=== PATIENT | male | born 1960 | race Asian ===

== ENCOUNTER 2017-05-17 22:20 | Inpatient (IN) | payer BC, OTHER ==
[2017-05-17] MEDS ORDERED: NS IV 1000 ML 1,000 ML IV ONE (23:36)
[2017-05-17] MEDS ORDERED: ONDANSETRON 4 MG/2 ML (SDV) Z0FRAN IVP ONE (23:45)
[2017-05-18] MEDS ORDERED: metroNIDAZOLE 500MG/100ML IVPB 100 ML IV ONE (02:45)
[2017-05-18] MEDS ORDERED: CIPROFLOXACIN IV 400MG/200ML 200 ML IV ONE (03:16)
[2017-05-18] MEDS ORDERED: D5 NS 1000 ML IV SOLUTION 1,000 ML IV ONE (03:16)
[2017-05-18] MEDS: D5 NS 1000 ML IV SOLUTION 1,000 ML IV SCH ×3 (03:29→14:04)
[2017-05-18] MEDS: CIPROFLOXACIN 400 MG/D5W 200 ML (PRE-MIX) IV SCH ×2 (03:29→15:23)
[2017-05-18] MEDS ORDERED: ONDANSETRON 4 MG/2 ML (SDV) Z0FRAN IV PRN (03:30)
[2017-05-18] MEDS: PANTOPRAZOLE 40 MG/10 ML (PROTONIX) VIAL IV SCH ×2 (03:31→15:23)
[2017-05-18] MEDS ORDERED: NS 100 ML (IVPB) BAG IV ONE (03:45)
[2017-05-18] MEDS ORDERED: IOHEXOL 350 MG/ML 100 ML (OMNIPAQUE 350) VIAL IV ONE (03:45)
[2017-05-18] MEDS: fentaNYL INJECTION 100 MCG/2 ML AMP IV PRN ×4 (04:08→17:12)
[2017-05-18] MEDS: metroNIDAZOLE 500 MG/100 ML IVPB (PRE-MIX) IV SCH ×3 (08:54→20:03)
[2017-05-18] MEDS ORDERED: OMG1KC PO (12:06)
[2017-05-18] MEDS ORDERED: MULT1TAB69 PO (12:06)
[2017-05-18] MEDS ORDERED: VITA400C58 PO (12:06)
[2017-05-18] MEDS ORDERED: CALC-654 PO (12:06)
[2017-05-18] MEDS ORDERED: ASPI-983 PO (12:06)
[2017-05-18] MEDS: inSUlin (REGULAR) HUMAN 1 UNIT/0.01 ML (CHARGE PER UNIT) SC SCH ×2 (16:00→21:25)
[2017-05-18] MEDS: LACTATED RINGERS 1,000 ML IV SCH (16:15)
[2017-05-19] MEDS: fentaNYL INJECTION 100 MCG/2 ML AMP IV PRN ×2 (00:26→03:29)
[2017-05-19] MEDS: metroNIDAZOLE 500 MG/100 ML IVPB (PRE-MIX) IV SCH ×4 (01:36→20:27)
[2017-05-19] MEDS: PANTOPRAZOLE 40 MG/10 ML (PROTONIX) VIAL IV SCH ×2 (03:17→15:38)
[2017-05-19] MEDS: CIPROFLOXACIN 400 MG/D5W 200 ML (PRE-MIX) IV SCH ×2 (03:17→15:38)
[2017-05-19] MEDS: LACTATED RINGERS 1,000 ML IV SCH ×3 (05:26→20:27)
[2017-05-19] MEDS: inSUlin (REGULAR) HUMAN 1 UNIT/0.01 ML (CHARGE PER UNIT) SC SCH ×4 (05:26→21:22)
[2017-05-20] MEDS: metroNIDAZOLE 500 MG/100 ML IVPB (PRE-MIX) IV SCH ×3 (01:44→14:38)
[2017-05-20] MEDS: PANTOPRAZOLE 40 MG/10 ML (PROTONIX) VIAL IV SCH ×2 (03:18→15:43)
[2017-05-20] MEDS: CIPROFLOXACIN 400 MG/D5W 200 ML (PRE-MIX) IV SCH ×2 (03:18→15:43)
[2017-05-20] MEDS: inSUlin (REGULAR) HUMAN 1 UNIT/0.01 ML (CHARGE PER UNIT) SC SCH ×2 (05:31→11:30)
[2017-05-20] MEDS: LACTATED RINGERS 1,000 ML IV SCH (08:15)
[2017-05-20] MEDS ORDERED: lisINopril 5 MG (PRINIVIL) TABLET PO SCH (09:00)
== END 2017-05-20 16:45 | disposition home or self-care (01) | DRG 392 ==
DX: R19.7 Diarrhea, unspecified (principal); I10 Essential (primary) hypertension; E11.9 Type 2 diabetes mellitus without complications; Z81.2 Family history of tobacco abuse and dependence

== ENCOUNTER 2018-01-07 18:26 | Emergency (ER) | payer BC ==
[~2018-01-07] VITALS: Ht 165.1 cm; Wt 79.4 kg
[~2018-01-07 18:26] MED LIST: ASPI-983 PO; CALC-654 PO; MULT1TAB69 PO; OMG1KC PO; VITA400C58 PO
[2018-01-07] MEDS ORDERED: NS IV 1000 ML 1,000 ML IV ONE (19:22)
[2018-01-07] MEDS ORDERED: ONDANSETRON 4 MG/2 ML (SDV) Z0FRAN IVP ONE (19:30)
[2018-01-07] MEDS ORDERED: KETOROLAC 30 MG/ML VIAL IVP ONE (19:30)
[2018-01-07 19:43] LABS: CLARITY,URINE BLOODY; COLOR,URINE RED; GLUCOSE, URINE (UA) NEGATIVE (NEGATIVE); KETONES,URINE 1+ (NEGATIVE); LEUKOCYTE ESTERASE ,URINE 2+ (NEGATIVE); NITRITE,URINE POSITIVE (NEGATIVE); PH,URINE 6.5 (5-9); PROTEIN,URINE 4+ (NEGATIVE); UROBILINOGEN,URINE 1 MG/DL (NORMAL)
[2018-01-07 19:54] LABS: BASOPHILS % (AUTO) 0 % (0-10); EOSINOPHILS # (AUTO) 0.1 10^3/uL (0.0-0.3); EOSINOPHILS % (AUTO) 0 % (0-10); HEMATOCRIT 44 % (40-54); HEMOGLOBIN 15.1 G/DL (13.3-17.7); LYMPHOCYTES # (AUTO) 1.5 X 10^3 (1.0-4.0); LYMPHOCYTES % (AUTO) 12 % (12-44); MEAN CORPUSCULAR HEMOGLOBIN 31 PG (25-34); MEAN CORPUSCULAR HGB CONC 34 G/DL (32-36); MEAN CORPUSCULAR VOLUME 91 FL (80-99); MEAN PLATELET VOLUME 11.9 FL (7.4-10.4); MONOCYTES # (AUTO) 0.6 X 10^3 (0.0-1.0); MONOCYTES % (AUTO) 5 % (0-12); NEUTROPHILS % (AUTO) 82 % (42-75); PLATELET COUNT 240 10^3/uL (130-400); RED BLOOD COUNT 4.88 10^6/uL (4.35-5.85); RED CELL DISTRIBUTION WIDTH 12.8 % (10.0-14.5); WHITE BLOOD COUNT 12.1 10^3/uL (4.3-11.0)
--- NOTE | 2018-01-07 19:57 | Diagnostic Imaging Report ---
PROCEDURE: CT urinary tract, rule out kidney stone. TECHNIQUE: Multiple contiguous axial images were obtained through the abdomen and pelvis without the use of intravenous contrast. INDICATION: Abdominal pain. COMPARISON: Study of 05/18/2017. FINDINGS: Unenhanced images of the liver and spleen reveal no focal abnormality. There is a small hiatal hernia. No gallbladder or pancreatic abnormality is identified. Gallbladder and kidneys reveal no focal lesion on the noncontrast study. There is slight left hydronephrosis and mild left hydroureter to the level of an approximately 0.5 cm distal left ureteric stone. No free fluid is seen in the abdomen or pelvis. There is no evidence of localized inflammation. There is a small umbilical herniation containing fat. Mild aortoiliac atherosclerotic calcification is present. There is no evidence of bladder calculus. There is mild diffuse thoracic and lumbar spondylosis. IMPRESSION: 1. At least partially obstructing 0.5 cm calcification in the distal left ureter. 2. Incidental note is made of punctate calcification in the inferior left prostate which was present on the previous study as well. Dictated by: Dictated on workstation # [id number]
[2018-01-07 20:02] LABS: BACTERIA,URINE MODERATE /HPF; BILIRUBIN,URINE 1+ (NEGATIVE); RBC,URINE TNTC /HPF
[2018-01-07 20:07] LABS: ALBUMIN 4.5 GM/DL (3.2-4.5); BILIRUBIN,TOTAL 0.5 MG/DL (0.1-1.0); CALCIUM 9.9 MG/DL (8.5-10.1); CREATININE SERUM 1.25 MG/DL (0.60-1.30); POTASSIUM 4.4 MMOL/L (3.6-5.0); TOTAL PROTEIN 8.7 GM/DL (6.4-8.2)
[2018-01-07] MEDS ORDERED: cefTRIAXone INJECTION 1,000 MG in NS (IVPB) 50 ML IV ONE (20:15)
--- NOTE | 2018-01-07 20:15 | ED Abdominal Pain ---
General Chief Complaint: -Male Stated Complaint: KIDNEY STONES Nursing Triage Note: PT C/O PASSING KIDNEY STONES AND BLOOD IN URINE. Sepsis Screen: No Definite Risk Source of Information: Patient, Family Exam Limitations: No Limitations History of Present Illness Date Seen by Provider: Jan 08, 2018 Time Seen by Provider: 18:45 Initial Comments This 57-year-old gentleman presents to the emergency room with left flank pain that started around 06:00. Pain was waxing and waning. Improved by 09:00. Pain then returned around 16:00. He has had nausea, vomiting, and associated sweats. Pain is reported as 3/10 at this time. He has had notable hematuria. He is afebrile. Allergies and Home Medications Allergies Coded Allergies: No Known Drug Allergies (Unverified , 05/17/17) Home Medications Aspirin 81 Mg Tablet.dr, 81 MG PO DAILY, (Reported) Calcium Carbonate/Vitamin D3 1 Each Tablet, 1 TAB PO DAILY, (Reported) Ciprofloxacin HCl 500 Mg Tablet, 500 MG PO BID, #20 Prescribed by: KIKI MAKI on 01/07/182017 Multivitamin 1 Each Tablet, 1 TAB PO DAILY, (Reported) [place] 3 Polyunsat Fatty Acids 1,000 Mg Cap, 1,000 MG PO DAILY, (Reported) Ondansetron 4 Mg Tab.rapdis, 4 MG SL Q4H PRN for NAUSEA/VOMITING-1ST LINE, #10 Ref 1 Prescribed by: KIKI MAKI on 01/07/182017 Oxycodone HCl/Acetaminophen 1 Each Tablet, 1-2 EACH PO Q4H PRN for PAIN- MODERATE TO SEVERE, #20 Prescribed by: KIKI MAKI on 01/07/18 2018 Tamsulosin HCl 0.4 Mg Cap, 0.4 MG PO DAILY, #30 Prescribed by: KIKI MAKI on 01/07/18 2018 Vitamin E Mixed 400 Unit Capsule, 400 UNIT PO DAILY, (Reported) Review of Systems Constitutional: see HPI EENTM: No Symptoms Reported Respiratory: No Symptoms Reported Cardiovascular: No Symptoms Reported Gastrointestinal: See HPI Genitourinary: See HPI Musculoskeletal: no symptoms reported Skin: no symptoms reported Psychiatric/Neurological: No Symptoms Reported Endocrine: No Symptoms Reported Past Mwbeluy-Rrwgci-Dxyymv Hx Patient Social History Former Smoker, Quit: May 18, 1995 Recent Foreign Travel: No Contact w/Someone Who Travel: No Recent Infectious Disease Expo: No Recent Hopitalizations: No Immunizations Up To Date PED Vaccines UTD: No Seasonal Allergies Seasonal Allergies: Yes Surgeries History of Surgeries: Yes Surgeries: Appendectomy Respiratory History of Respiratory Disorde: No Cardiovascular History of Cardiac Disorders: No Neurological History of Neurological Disord: No Genitourinary History of Genitourinary Disor: No Gastrointestinal History of Gastrointestinal Di: No Musculoskeletal History of Musculoskeletal Dis: No Endocrine History of Endocrine Disorders: Yes Endocrine Disorders: Diabetes, Non-Insulin dep HEENT History of HEENT Disorders: No Cancer History of Cancer: No Psychosocial History of Psychiatric Problem: No Integumentary History of Skin or Integumenta: No Blood Transfusions History of Blood Disorders: No Family Medical History Significant Family History: Asthma, COPD Family Medial History: Asthma 19 MOTHER FH: pancreatic cancer G8 SISTER Physical Exam Vital Signs VS - Last 72 Hours, by Label 01/07/18 01/07/18 19:18 21:10 Temp 98.7 98.7 Pulse 72 88 Resp 18 20 B/P (MAP) 158/83 (108) Pulse Ox 95 96 O2 Delivery Room Air Room Air Capillary Refill : Less Than 3 Seconds General Appearance: WD/WN, mild distress HEENT: PERRL/EOMI, normal ENT inspection Neck: normal inspection Respiratory: lungs clear, normal breath sounds, no respiratory distress, no accessory muscle use Cardiovascular: regular rate, rhythm, no edema, no murmur Gastrointestinal: normal bowel sounds, soft, tenderness (left flank) Extremities: normal inspection, no pedal edema 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, no motor/sensory deficits, alert, normal mood/affect, oriented x 3 Skin: normal color, warm/dry Progress/Results/Core Measures Results/Orders Lab Results Laboratory Tests Test 01/07/18 19:25 Range/Units White Blood Count 12.1 H 4.3-11.0 10^3/uL Red Blood Count 4.88 4.35-5.85 10^6/uL Hemoglobin 15.1 13.3-17.7 G/DL Hematocrit 44 40-54 % Mean Corpuscular Volume 91 80-99 FL Mean Corpuscular Hemoglobin 31 25-34 PG Mean Corpuscular Hemoglobin Concent 34 32-36 G/DL Red Cell Distribution Width 12.8 10.0-14.5 % Platelet Count 240 130-400 10^3/uL Mean Platelet Volume 11.9 H 7.4-10.4 FL Neutrophils (%) (Auto) 82 H 42-75 % Lymphocytes (%) (Auto) 12 12-44 % Monocytes (%) (Auto) 5 0-12 % Eosinophils (%) (Auto) 0 0-10 % Basophils (%) (Auto) 0 0-10 % Neutrophils # (Auto) 10.0 H 1.8-7.8 X 10^3 Lymphocytes # (Auto) 1.5 1.0-4.0 X 10^3 Monocytes # (Auto) 0.6 0.0-1.0 X 10^3 Eosinophils # (Auto) 0.1 0.0-0.3 10^3/uL Basophils # (Auto) 0.0 0.0-0.1 10^3/uL Urine Color RED H Urine Clarity BLOODY H Urine pH 6.5 5-9 Urine Specific [place] 1.025 H 1.016-1.022 Urine Protein 4+ NEGATIVE Urine Glucose (UA) NEGATIVE NEGATIVE Urine Ketones 1+ H NEGATIVE Urine Nitrite POSITIVE H NEGATIVE Urine Bilirubin 1+ H NEGATIVE Urine Urobilinogen 1 NORMAL MG/DL Urine Leukocyte Esterase 2+ H NEGATIVE Urine RBC (Auto) 5+ H NEGATIVE Urine RBC TNTC H /HPF Urine WBC 5-10 H /HPF Urine Crystals NONE /LPF Urine Bacteria MODERATE H /HPF Urine Casts NONE /LPF Urine Mucus NEGATIVE /LPF Urine Culture Indicated YES Sodium Level 143 135-145 MMOL/L Potassium Level 4.4 3.6-5.0 MMOL/L Chloride Level 103 98-107 MMOL/L Carbon Dioxide Level 26 21-32 MMOL/L Anion Gap 14 5-14 MMOL/L Blood Urea Nitrogen 24 H 7-18 MG/DL Creatinine 1.25 0.60-1.30 MG/DL Estimat Glomerular Filtration Rate 60 BUN/Creatinine Ratio 19 Glucose Level 151 H 70-105 MG/DL Calcium Level 9.9 8.5-10.1 MG/DL Total Bilirubin 0.5 0.1-1.0 MG/DL Aspartate Amino Transf (AST/SGOT) 29 5-34 U/L Alanine Aminotransferase (ALT/SGPT) 36 0-55 U/L Alkaline Phosphatase 51 40-136 U/L Total Protein 8.7 H 6.4-8.2 GM/DL Albumin 4.5 3.2-4.5 GM/DL Lipase 16 8-78 U/L My Orders Orders - KIKI ZARATE MD Ua Culture If Indicated (01/07/18 18:44) Cbc With Automated Diff (01/07/18 19:22) Comprehensive Metabolic Panel (01/07/18 19:22) Saline Lock/Iv-Start (01/07/18 19:22) Ns Iv 1000 Ml (Sodium Chloride 0.9%) (01/07/18 19:22) Ondansetron Injection (Zofran Injectio (01/07/18 19:30) Lipase (01/07/18 19:22) Ketorolac Injection (Toradol Injection) (01/07/18 19:30) Ct Abd/Pelvis Wo(Kidney Stone) (01/07/18 19:24) Urine Culture (01/07/18 19:25) Ceftriaxone Injection (Rocephin Injectio (01/07/18 20:15) Abdomen/Kub 1view (01/07/18 20:16) Fentanyl Injection (Sublimaze Injection (01/07/18 20:30) Promethazine Injection (Phenergan Injec (01/07/18 20:30) Medications Given in ED Current Medications Medications Dose Ordered Sig/Negrita Route Start Time Stop Time Status Last Admin Dose Admin Ceftriaxone Sodium 1000 mg/ Sodium Chloride 50 ml @ 100 mls/hr ONCE ONCE IV 01/07/18 20:15 01/07/18 20:44 DC 01/07/18 20:20 100 MLS/HR Fentanyl Citrate 75 mcg ONCE ONCE IVP 01/07/18 20:30 01/07/18 20:31 DC 01/07/18 20:41 75 MCG Promethazine HCl 25 mg ONCE ONCE IVP 01/07/18 20:30 01/07/18 20:31 DC 01/07/18 20:41 25 MG Vital Signs/I&O Vital Sign - Last 12Hours 01/07/18 01/07/18 19:18 21:10 Temp 98.7 98.7 Pulse 72 88 Resp 18 20 B/P (MAP) 158/83 (108) Pulse Ox 95 96 O2 Delivery Room Air Room Air Intake and Output 01/08/18 00:00 Intake Total 1050 ml Balance 1050 ml Blood Pressure Mean: 108 Progress Note : Progress Note Patient was treated with Zofran, IV fluids, and Toradol. This did improve his symptoms. He was found to have urinary tract infection associated with a left distal ureteral stone. Rocephin was administered. Patient had some rebound pain and nausea prior to dismissal and was treated with Phenergan and fentanyl. Case was discussed with Dr. Boss who would like the patient to contact his clinic in the morning for follow-up. Diagnostic Imaging Diagonstic Imaging: CT Plain Films/CT/US/NM/MRI: abdomen, pelvis Comments CT abdomen and pelvis viewed by me and report reviewed. See report below: NAME: TIP STEPHENSON MED REC#: [id number] PT STATUS: REG ER : 1960 PHYSICIAN: KIKI ZARATE MD ADMIT DATE: 01/07/18/ER Draft Date of Exam:01/07/18 CT ABD/PELVIS WO(KIDNEY STONE) PROCEDURE: CT urinary tract, rule out kidney stone. TECHNIQUE: Multiple contiguous axial images were obtained through the abdomen and pelvis without the use of intravenous contrast. INDICATION: Abdominal pain. COMPARISON: Study of 05/18/2017. FINDINGS: Unenhanced images of the liver and spleen reveal no focal abnormality. There is a small hiatal hernia. No gallbladder or pancreatic abnormality is identified. Gallbladder and kidneys reveal no focal lesion on the noncontrast study. There is slight left hydronephrosis and mild left hydroureter to the level of an approximately 0.5 cm distal left ureteric stone. No free fluid is seen in the abdomen or pelvis. There is no evidence of localized inflammation. There is a small umbilical herniation containing fat. Mild aortoiliac atherosclerotic calcification is present. There is no evidence of bladder calculus. There is mild diffuse thoracic and lumbar spondylosis. IMPRESSION: 1. At least partially obstructing 0.5 cm calcification in the distal left ureter. 2. Incidental note is made of punctate calcification in the inferior left prostate which was present on the previous study as well. Dictated on workstation # [id number] Dict: 01/07/181949 Trans: 01/07/181955 [facility] [id number] Interpreted by: KAMAR TAM MD Departure Impression Impression: Primary Impression: Left ureteral stone Additional Impression: Urinary tract infection Qualified Codes: N39.0 - Urinary tract infection, site not specified; R31.9 - Hematuria, unspecified Disposition: 01 HOME, SELF-CARE Condition: Improved Departure-Patient Inst. Referrals: YOANNA MUHAMMAD DO (PCP) Primary Care Physician AMADEO BOSS MD Patient Instructions: Kidney Stones in Adults, Urinary Tract Infection, Adult ( DC) Add. Discharge Instructions: Drink plenty of clear liquids. Complete your antibiotics as prescribed. Use Zofran (ondansetron) as prescribed for nausea and vomiting. Use your Percocet as prescribed for pain. Contact Dr. Boss's office first thing in the morning for follow-up. Strain your urine with the funnel strainer and present any stones collected to your follow-up appointment. Return to the emergency room if symptoms worsen or if you develop additional symptoms such as fever greater than 100. All discharge instructions reviewed with patient and/or family. Voiced understanding. Scripts Tamsulosin HCl (Flomax) 0.4 Mg Cap 0.4 MG PO DAILY, #30 CAP Prov: KIKI ZARATE MD 01/07/18 Ondansetron (Zofran Odt) 4 Mg Tab.rapdis 4 MG SL Q4H Y for NAUSEA/VOMITING-1ST LINE, #10 TAB 1 Refill Prov: KIKI ZARATE MD 01/07/18 Oxycodone HCl/Acetaminophen (Percocet 5-325 mg Tablet) 1 Each Tablet 1-2 EACH PO Q4H Y for PAIN-MODERATE TO SEVERE, #20 TAB Prov: KIKI ZARATE MD 01/07/18 Ciprofloxacin HCl (Cipro) 500 Mg Tablet 500 MG PO BID, #20 TAB Prov: KIKI ZARATE MD 01/07/18 Copy Copies To 1: AMADEO BOSS MD, JOSHUA T MD Jan 07, 2018 20:15
[2018-01-07] MEDS ORDERED: TAMS0.4C98 PO (20:18)
[2018-01-07] MEDS ORDERED: ONDA4TAB8 SL (20:18)
[2018-01-07] MEDS ORDERED: OXYC-197 PO (20:18)
[2018-01-07] MEDS ORDERED: CIPR-225 PO (20:18)
[2018-01-07] MEDS ORDERED: fentaNYL INJECTION 100 MCG/2 ML AMP IVP ONE (20:30)
[2018-01-07] MEDS ORDERED: PROMETHAZINE INJ 25 MG/ML (PHENERGAN) AMP IVP ONE (20:30)
--- NOTE | 2018-01-07 20:39 | Diagnostic Imaging Report ---
INDICATION: Renal calculus Single supine AP view of the abdomen is obtained. Overall bowel gas pattern is within normal limits. Evaluation for renal calculus is somewhat limited due to overlying bowel. No definite pathologic calcification is seen. No other acute abnormality is appreciated. IMPRESSION: No acute abnormality is detected. No definite calculus is seen although stool does limit evaluation. Dictated by: Dictated on workstation # [id number]
[2018-01-07 21:10] VITALS: BP 144/78
== END 2018-01-07 21:10 | disposition home or self-care (01) ==
LOC: EDUNIT# 18:26 → ER 18:28
DX: N20.1 Calculus of ureter (principal); N39.0 Urinary tract infection, site not specified; E11.9 Type 2 diabetes mellitus without complications; Z80.0 Family history of malignant neoplasm of digestive organs; Z79.82 Long term (current) use of aspirin; Z90.49 Acquired absence of other specified parts of digestive tract
CPT/HCPCS: 36415; 74018; 74176; 80053; 81000; 83690; 85025; 87077; 87088; 87186; 96361; 96365; 96375